=== PATIENT | female | born 1990 | race Caucasian/White ===

== ENCOUNTER 2019-09-11 08:27 | Day surgery (SDC) | payer BC, OTHER ==
[~2019-09-11] VITALS: Ht 162.6 cm; Wt 68.2 kg
[~2019-09-11 08:27] MED LIST: BUPIVACAINE/EPI 0.5% 1:200K ONE; None per pt.
[2019-09-11 09:12] VITALS: BP 109/76
[2019-09-11] MEDS ORDERED: LACTATED RINGERS 1,000 ML IV SCH ×2 (09:14→12:10)
[2019-09-11] MEDS ORDERED: GABAPENTIN 300 MG CAPSULE PO ONE (09:30)
[2019-09-11] MEDS ORDERED: ACETAMINOPHEN 500 MG TABLET PO ONE (09:30)
[2019-09-11] MEDS ORDERED: SCOPOLAMINE PATCH, 1.5MG PATCH.TD72 TD ONE (09:30)
[2019-09-11 09:41] LABS: HCG UR SG 1.014 (1.003-1.030)
[2019-09-11] MEDS ORDERED: FENTANYL PF 250 MCG/5ML ONE (10:06)
[2019-09-11] MEDS ORDERED: MIDAZOLAM 1 MG/ML, 2ML ONE (10:06)
[2019-09-11] MEDS ORDERED: DEXAMETHASONE 4 MG/ML, 1ML ONE (10:10)
[2019-09-11] MEDS ORDERED: ONDANSETRON 2MG/ML, 2ML ONE (10:10)
[2019-09-11] MEDS ORDERED: CEFAZOLIN 1,000 MG ONE (10:10)
[2019-09-11] MEDS ORDERED: GLYCOPYRROLATE 0.2MG/1ML, 5ML ONE (10:10)
[2019-09-11] MEDS ORDERED: PROPOFOL 10 MG/ML, 20ML ONE (10:10)
[2019-09-11] MEDS ORDERED: ROCURONIUM 10MG/ML,5ML ONE (10:10)
[2019-09-11] MEDS ORDERED: NEOSTIGMINE 1 MG/ML, 10ML ONE (10:10)
[2019-09-11] MEDS ORDERED: KETOROLAC 30 MG/1 ML ONE (12:16)
[2019-09-11] MEDS ORDERED: KETOROLAC 30 MG/1 ML IVPush PRN (12:30)
[2019-09-11] MEDS ORDERED: ONDANSETRON 2MG/ML, 2ML IVPush PRN (12:30)
[2019-09-11] MEDS ORDERED: HYDROcodone/APAP 5/325 TABLET PO PRN (12:30)
[2019-09-11] MEDS ORDERED: morphine SULFATE 10 MG/ML, 1ML IVPush PRN (12:30)
== END 2019-09-11 14:40 | disposition home or self-care (01) ==
LOC: OUT 08:27
PROVIDERS: ATTEND Thoracic Surgery (Cardiothoracic Vascular Surgery)
DX: K43.6 Other and unspecified ventral hernia with obstruction, without gangrene (principal); F15.90 Other stimulant use, unspecified, uncomplicated; Z98.890 Other specified postprocedural states; Z72.89 Other problems related to lifestyle
CPT/HCPCS: 49572; 81025; C1781; J0690; J1100; J1885; J2250; J2405; J2704; J2710; J3010; J7120